=== PATIENT | female | born 1960 | race African-American/Black ===

== ENCOUNTER 2016-12-15 13:28 | Emergency (ER) | payer MEDICAID, OTHER ==
[~2016-12-15] VITALS: Wt 88.5 kg
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
--- NOTE | 2016-12-15 15:43 | RADRPT ---
PROCEDURE: XR Cervical Spine 2 Views. CLINICAL INDICATION: Neck pain and trauma. TECHNIQUE: AP and lateral views of the cervical spine were performed. The images were reviewed on a PACS workstation. COMPARISON: None. FINDINGS: Cervical spine demonstrates a normal lordosis. No fractures or destructive bony lesions are observe d. Moderate to severe intervertebral disk space narrowing is identified at C5-6. Anterior osteophyt osis is noted at this level. Facet joints are unremarkable. No prevertebral soft tissue thickening is observed. IMPRESSION: No visualized traumatic injury. Moderate to severe degenerative disk disease and C5-6. If there is high clinical suspicion for traumatic injury, further evaluation with CT should be consi dered. RPTAT: AA .Link Marquez MD, Date Time Electronically viewed and signed by .Link Marquez MD, on 12/15/2016 15:43 .P/
--- NOTE | 2016-12-15 15:44 | RADRPT ---
PROCEDURE: XR Chest 1 View. CLINICAL INDICATION: Chest pain and trauma. TECHNIQUE: AP view of the chest was obtained. COMPARISON: None. FINDINGS: The heart size is within normal limits. Calcified atherosclerosis is noted in the aorta. The lungs are hyperexpanded. No consolidations are identified. No pneumothorax is seen. Osseous structures a re intact. IMPRESSION: Calcified atherosclerosis in the aorta. No visualized traumatic injury. If there is high clinical suspicion for traumatic injury, further evaluation with CT should be consi dered. RPTAT: AA .Link Marquez MD, MD Date Time Electronically viewed and signed by .Link Marquez MD, on 12/15/2016 15:43 .P/
[2016-12-15] MEDS ORDERED: NAPR-260 PO (16:00)
[2016-12-15] MEDS ORDERED: CYCL-319 PO (16:00)
[2016-12-15] MEDS ORDERED: ACET500C5 PO (16:01)
== END 2016-12-15 16:14 | disposition home or self-care (01) ==
LOC: FTE 13:28
DX: S40.012A Contusion of left shoulder, initial encounter (principal); S20.02XA Contusion of left breast, initial encounter; V49.49XA Driver injured in collision with other motor vehicles in traffic accident, initial encounter; Z87.891 Personal history of nicotine dependence
CPT/HCPCS: 71010; 72040; Z7502